=== PATIENT | male | born 1935 | race Caucasian/White ===

== ENCOUNTER 2021-03-25 14:20 | Inpatient (IN) | payer OTHER ==
[~2021-03-25] VITALS: Ht 180.3 cm; Wt 81.6 kg
[2021-03-25] MEDS ORDERED: PRAVACHOL40 MG PO (15:00)
[2021-03-25] MEDS ORDERED: EZETIMIBE10 MG PO (15:01)
--- NOTE | 2021-03-25 16:44 | NUR ---
COVID 19 TEST WAS PERFORMED TODAY 03/25 PER REPORT BY [facility] FINANCIAL AID ADVISOR. FAX OF NEGATIVE RESULTS HAS BEEN RECIEVED.
[2021-03-25] MEDS ORDERED: TYLENOL325 M1 PO (17:05)
[2021-03-25] MEDS ORDERED: CHILDREN'S ASPI81 M1 PO (17:05)
[2021-03-25] MEDS ORDERED: D3-200050 MCG PO (17:10)
[2021-03-25] MEDS ORDERED: PLAVIX 75 MG TA75 MG PO (17:12)
[2021-03-25] MEDS ORDERED: CALCIUM CARBON500 MG PO (17:13)
[2021-03-25] MEDS ORDERED: CLOTRIMAZOLE-BE15 GM TOP (17:14)
[2021-03-25] MEDS ORDERED: LOVENOX40 MG/0.4 SUBQ (17:15)
[2021-03-25] MEDS ORDERED: SLOW FE142 MG PO (17:16)
[2021-03-25] MEDS ORDERED: NEURONTIN300 MG PO (17:17)
[2021-03-25] MEDS ORDERED: SENNA8.8 MG/5 M PO (17:19)
[2021-03-25] MEDS ORDERED: PROTONIX40 M2 PO (17:20)
[2021-03-25] MEDS ORDERED: JANUMET 50-1,01 EACH PO (17:20)
[2021-03-25] MEDS ORDERED: OXYCODONE PO (17:31)
[2021-03-25] MEDS ORDERED: KRISTALOSE20 GM PO (17:34)
[2021-03-25] MEDS ORDERED: NOVOLOG100 UNIT/M SUBQ (17:38)
[2021-03-25 19:15] VITALS: BP 125/69
--- NOTE | 2021-03-25 23:15 | NUR ---
pt arrived to unit approx 1900 from [facility]. pts daughter here at bedside when pt arrived. pt transferred to bed with assist of 1 from [facility]. pt alert and oriented x4, appropriate and cooperative, hard of hearing and somewhat forgetful. pt pleasant, oriented to room and daughter Inna had brought in taco browning for pt. pt with good appetite tolerating food well. pt denied pain. pt with clothes on and sweat pants on and left bka with jessica wrap in place under pants. pt denied wanting to change clothes and stated he would wait until am to change. pt with no hs meds. pt with no further questions. call light in reach and bed alarm on. will continue to monitor.
[2021-03-26 05:39] LABS: CALCIUM 8.5 mg/dL (8.5-10.1)
[2021-03-26 05:40] LABS: HEMATOCRIT 25.5 % (42.0-52.0); HEMOGLOBIN 8.3 gm/dL (14.0-18.0); MCH 26.8 pg (26.0-34.0); MCHC 32.6 g/dL (28.0-37.0); MCV 82.3 fL (80.0-100.0); RBC 3.1 mil/uL (4.50-6.00); RDW 18.5 % (10.5-14.5); WBC 5.5 thou/uL (4.0-11.0)
[2021-03-26 08:00] VITALS: BP 115/75
[2021-03-26 09:17] LABS: FOLIC ACID 17.9 ng/mL (8.6-58.9)
--- NOTE | 2021-03-26 13:09 | NUR ---
team meeting, recommendation: AFO on right, new left bka. Britton consult. already has assist with medication and finances. possibly go to [place] till his daughter home is fixed up for him to come and live with his daughter. Re team
--- NOTE | 2021-03-26 15:34 | NUR ---
ASSUMED PT CARE AT SHIFT CHANGE, PT A/O, CALM AND COOPERATIVE, PT STATED THAT "THE NIGHT WAS GOOD" BEDSIDE ASSESSMENT DONE AND CHARTED. LABS REVIEWED NO NEW CONCERNS, VSS, MOOD AND APPETITE ADEQUATE, MEDS GIVEN PER ORDER, PT TAKES PILLS WHOLE WITH WATER, NO COMPLAINT VOICED, NO PAIN REPORTED, STAMP ASSESSED, NO COMPLICATIONS, DRESSING CLEAN AND INTACT, WC PERFORMED PER ORDER, AFEBRILE, WILL CONT TO MONITOR FRO CHANGE.
[2021-03-26 19:59] VITALS: BP 127/66
--- NOTE | 2021-03-27 01:48 | NUR ---
ASSUMED CARE APPROX 1900 EVENING 03/26. PT LYING IN BED WITH HEAD OF BED ELEVATED AT CHANGE OF SHIFT. PT HARD OF HEARING, APPROPRIATE AND COOPERATIVE. PT INCONTINENT OF URINE AND ASSIST WITH PAD/BRIEF CHANGE. PT TOOK HS MEDS WITH WATER TOLERATING WELL. PT APPEARS TO BE SLEEPING SOUNDLY. BED ALARM ON AND CALL LIGHT IN REACH. WILL CONTINUE TO MONITOR.
[2021-03-27 07:09] LABS: GLYCOHEMOGLOBIN (HGB A1C) 6.3 % (4.8-5.6)
[2021-03-27 07:39] VITALS: BP 118/70
--- NOTE | 2021-03-27 11:07 | NUR ---
ASSUMED CARE AT 0700. PATIENT IS ALERT AND ORIENTED X4. PATIENT IS H0H. PATIENT MOVES ALL EXTREMITES. FLIGHT COMMUNICATIONS OFFICER ARE EQUAL. PATIENT LUNGS ARE CLEAR AND DEMINISHED. PATIENT CONTINUES ON R.A. PATIENT HAS LEFT BKA WITH BRENT WRAP. ABD IS SOFT WITH BSX4. PATIENT IS INCONTINENT OF B & B. FALL AND SAFETY PROTOCOLS IN PLACE. DENIES PAIN AT THIS TIME. CONTINUES TO PROGRESS SLOWLY TOWARDS D/C GOALS. WILL COTINUE TO MONITER.
[2021-03-27 20:23] VITALS: BP 117/75
--- NOTE | 2021-03-28 04:20 | NUR ---
ASSUMED CARE AT 1930 OF 03/27. PATIENT IS A&OX4, DENIES PAIN OR SHORTNESS OF BREATH. DRESSING OVER LEFT BKA IS CDI. CAN BE INCONTINENT OF BOWEL AND BLADDER. MODERATE ASSIST WITH ADLS AT HS, USES URINAL TO VOID. URINAL PLACED AT BEDSIDE. FALL PRECAUTIONS IN PLACE, CALL LIGHT WITHIN REACH. WILL CONTINUE TO MONITOR.
[2021-03-28 08:00] VITALS: BP 118/56
--- NOTE | 2021-03-28 11:19 | NUR ---
ASSUMED CARE AT 0700. PATIENT IS ALERT AND ORIENTED X4. PATIENT HAS LEFT BKA. PLAN FOR FAMILY MEDICINE RESIDENT TO PLACE STUMP SHIELD LATER TODAY. LUNGS ARE CLEAR. ABD IS SOFT WITH BSX4. UP TO THE THE BATHROOM WITH MODERATE ASSIST TO HAVE BM AND VOID SULLY COLORED URINE. FALL AND SAFETY PROTOCOLS IN PLACE. DENIES PAIN AT THIS TIME. CONTINUES TO PROGESSS SLOWLY TOWARDS D/C GOALS. WILL CONTINUE TO MONITER.
--- NOTE | 2021-03-28 17:37 | NUR ---
PATIENT GIVEN D/C INSTRUCTIONS. PATIENT VERBALIZED UNDERSTANDING. PATIENT SISTERS HERE. PATIENT LEFT UNIT IN GOOD CONDTION WITH ALL OF HER BELONGINGS AND DISCHARGE INSTRUCTIONS. PATIENT WAS MIN ASSIST FROM W/C TO CAR.
[2021-03-28 19:40] VITALS: BP 128/68
--- NOTE | 2021-03-29 03:55 | NUR ---
ASSUMED CARE AT 1900 OF 03/28. PATIENT IS A&OX4, DENIES PAIN OR SHORTNESS OF BREATH. STUMP SHIELD TO LLE WAS REMOVED AT START OF SHIFT, DRESSING OVER LEFT BKA IS CDI. MODERATE ASSIST WITH SLIDE BOARD TO AND FROM W/C, AND MAXIMUM ASSIST WITH PIVOT TRANSFER TO TOILET USING GB. PATIENT WAS ABLE TO PERFORM ADLS AT HS WITH MINIMAL ASSIST. LLE REMAINS ELEVATED WHILE IN BED. FALL PRECAUTIONS IN PLACE, CALL LIGHT WITHIN REACH. WILL CONTINUE TO MONITOR.
[2021-03-29 06:26] LABS: HEMATOCRIT 22.9 % (42.0-52.0); HEMOGLOBIN 7.5 gm/dL (14.0-18.0); MCHC 32.7 g/dL (28.0-37.0); MCV 82.4 fL (80.0-100.0); PLATELET COUNT 268 thou/uL (150-400); RBC 2.78 mil/uL (4.50-6.00)
[2021-03-29 07:06] LABS: ABSOLUTE NEUTROPHILS 4.2 thou/uL (1.4-8.2); ANISOCYTOSIS 2+
[2021-03-29 07:10] LABS: ALBUMIN 2.5 g/dL (3.4-5.0); CALCIUM 7.9 mg/dL (8.5-10.1); CREATININE 2.9 mg/dL (0.7-1.3); MAGNESIUM 1.1 mg/dL (1.8-2.4); POTASSIUM 4.3 mmol/L (3.5-5.1); TOTAL BILIRUBIN 0.2 mg/dL (0.2-1.0); TOTAL PROTEIN 5.8 g/dL (6.4-8.2)
--- NOTE | 2021-03-29 07:58 | NUR ---
Chart review. Cont to work with therapy, working towards dc. W/c at dc r/t new bka. Will cont following as needed for dc needs. [facility] at tx.
[2021-03-29 08:00] VITALS: BP 117/61
--- NOTE | 2021-03-29 19:14 | NUR ---
Patient care resummed, patient located in bed lying high fowers comfortably watching T.V. Patient denies pain or discomfort. A&O*4 but forgetful at times, Lung sounds are clear and unlabored, abdomen is soft and round on morning assessment then later in the day the patients abdomen was distended and firm. Patient order was placed to be bladder scanned. Patient risdual was 1,164, 16french cornejo was ordered per THERAPIST PHYS at 1530 and 1,200 was drained from the bladder. Rentention was met during procedure by RN(Brandi) and THERAPIST PHYS was notififed and a Urology consult was ordered. Urology came by to see the patient at 1819 and informed SCANNING SUPERVISOR everything look good. Patient recieved Acetaminopen for post procedure discomfort. Will continue to monitor this patient closely. UA and Labs were collcted today, ACHS with insulin only given at dinner. Wound Care consulted for Patients Thursday assessment per orders. Wound Care informed SCANNING SUPERVISOR that changing and assessing the patients wound was my job not his. Patients would was not changed, but cnc machinist 2nd shift RN was informed and will attempt to do so before bedtime. Wound dressing dry and intact at this time. VSS. Will continue to monitor patient.
[2021-03-29 19:17] LABS: URINE BILIRUBIN NEGATIVE (Negative); URINE BLOOD 3+ (Negative); URINE CLARITY CLEAR; URINE COLOR YELLOW; URINE GLUCOSE-RANDOM* NEGATIVE (Negative); URINE KETONES NEGATIVE (Negative); URINE LEUKOCYTES-REFLEX NEGATIVE (Negative); URINE NITRITE-REFLEX NEGATIVE (Negative); URINE PROTEIN (DIPSTICK) NEGATIVE (Negative); URINE UROBILINOGEN 0.2 E.U./dl (0.2-1.0)
[2021-03-29 19:45] VITALS: BP 141/71
[2021-03-29 19:58] LABS: CASTS None Seen /LPF (None Seen); SQUAMOUS 0-3 Few /LPF (0-3); URINE WBC-REFLEX 0-5 Rare /HPF (0-5)
[2021-03-29 19:59] LABS: BACTERIA-REFLEX 1-9 Few /HPF (None Seen); CRYSTALS None Seen /LPF (None Seen); URINE RBC 3-10 Few /HPF (NONE SEEN)
--- NOTE | 2021-03-30 02:17 | NUR ---
assumed care approx 0 evening 03/29. pt lying in bed resting at change of shift.pt alert and oriented x4, pleasant, cooperative, hard of hearing. cornejo to dd with blood tinged urine in bag. pt denied any pain. pt took hs meds with water tolerating well. pt appears to be sleeping soundly. bed alarm on and call light in reach. will continue to monitor.
[2021-03-30 06:19] LABS: ABSOLUTE NEUTROPHILS 3.5 thou/uL (1.4-8.2); BASOPHILS 0.9 % (0.0-2.0); EOSINOPHILS 5.9 % (0.0-3.0); HEMATOCRIT 22.8 % (42.0-52.0); HEMOGLOBIN 7.4 gm/dL (14.0-18.0); LYMPHOCYTES 13.5 % (24.0-44.0); MCH 26.6 pg (26.0-34.0); MCHC 32.4 g/dL (28.0-37.0); MONOCYTES 11.8 % (1.0-8.0); PLATELET COUNT 273 thou/uL (150-400); POLYS 67.9 % (36.0-66.0); RBC 2.78 mil/uL (4.50-6.00); RDW 18.7 % (10.5-14.5); WBC 5.2 thou/uL (4.0-11.0)
[2021-03-30 06:53] LABS: MAGNESIUM 1.1 mg/dL (1.8-2.4); POTASSIUM 4.3 mmol/L (3.5-5.1)
[2021-03-30 07:07] LABS: CREATININE 1.5 mg/dL (0.7-1.3)
[2021-03-30 08:00] VITALS: BP 139/72
--- NOTE | 2021-03-30 09:19 | NUR ---
ASSUMED CARE AT 0700. PATIENT IS ALERT AND ORIENTED X4. PATIENT IS VERY [place]. PATIENT HAS LEFT BKA. PATIENTS LUNGS ARE CLEAR. ABD IS SOFT WITH BSX4. UP TO THE BATHROOM TO HAVE BM. ENCOURAGED PO FLUIDS. PATIENT HAS BUCHANAN TO DD, DRAINIG PALE PINK DRAINAGE. LEFT STUMP DRESSING CHANGED ACCORDING TO PROTOCOLS. FALL AND SAFETY PROTOCOLS IN PLACE.DENIES PAIN IN STUMP AT THIS TIME. CONTINUES TO PROGRESS SLOWLY TOWARDS D/C GOALS. STUMP SHIELD IN PLACE. WILL CONTINUE TO MONITER.
--- NOTE | 2021-03-30 19:02 | NUR ---
1000 DR. ORTEGA HERE TO SEE PATIENT. DR. ORTEGA NOTIFIED OF MG LEVEL 1.1 HE STATED" HE WOULD REVIEW THE LABS" AND DECIDE WHAT HE WANTED TO DO. HE WAS NOTIFIED OF UROLOGY VISIT AND ORDERS FOR BUCHANAN X 3 DAYS. FLOMAX WAS STARTED. PATIENT WAS ENCOURAGED TO INCREASE HIS PO INTAKE. PLAN BLADDER TRAINING TO START ON THURSDAY. METFORMIN ON HOLD. CR LEVEL 1.5. WILL CONTINUE TO MONITER.
[2021-03-30 19:37] VITALS: BP 145/76
--- NOTE | 2021-03-31 00:36 | NUR ---
ASSUMED CARE AT 1900 OF 03/30. PATIENT IS A&OX4, DENIES PAIN OR SHORTNESS OF BREATH. 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 DRESSING TO LEFT BKA IS IN PLACE AND INTACT. ORAL FLUID INTAKE IS ENCOURAGED, BUCHANAN TO DD, DRAINING YELLOW URINE. TOLERATED ORAL MEDS WHOLE WITH WATER AT HS. FALL PRECAUTIONS IN PLACE, CALL LIGHT WITHIN REACH. WILL CONTINUE TO MONITOR.
[2021-03-31 08:00] VITALS: BP 138/72
--- NOTE | 2021-03-31 16:44 | NUR ---
PT care assumed at shift change, Pt A/O x 4, Pt appears calm and cooperative, assessment done at bedside an charted, VSS , labs reviewed and no concerns; All meds given per order, takes pills whole with water, no pain or respiratory distress noticed, pt looks comfortable and safe, all fall precautions in place, Wc per order, urinary cathter patent, 1 nomarl BM, no other concerns. Will cont' POC.
[2021-03-31 19:45] VITALS: BP 155/68
--- NOTE | 2021-04-01 05:09 | NUR ---
ASSUMED CARE AT 1900 OF 03/31. PATIENT IS A&OX4, FORGETFUL AT TIMES. DENIES PAIN OR SHORTNESS OF BREATH. LEFT BKA STUMP DRESSSING IN PLACE AND INTACT. ORAL MAGNESIUM REPLACEMENT ADMINISTERED THIS SHIFT, CBC AND MAG LEVEL TO BE RECHECK IN THE AM. PATIENT REFUSED TO CHANGE INTO GOWN AT HS, BUT PERFORMED ORAL HYGIENE WITH SUPERVISION. BUCHANAN TO DD, DRAINING CLEAR YELLOW URINE. FALL PRECAUTIONS IN PLACE, CALL LIGHT WITHIN REACH. WILL CONTINUE TO MONITOR.
[2021-04-01 06:02] LABS: CALCIUM 8.2 mg/dL (8.5-10.1); CREATININE 0.8 mg/dL (0.7-1.3); MAGNESIUM 1.2 mg/dL (1.8-2.4); POTASSIUM 4.1 mmol/L (3.5-5.1)
[2021-04-01 09:03] VITALS: BP 128/83
--- NOTE | 2021-04-01 15:37 | NUR ---
THIS PETROLEUM ENGINEERING TEACHER COMPLETED THE CONSULT FOR THIS PATIENT. WE DID LIFE REVIEW AND DISCUSSED THE RECENT OF HIS . PATIENT IS AN [employer] . HE IS AN AMAZING PERSON. THIS PETROLEUM ENGINEERING TEACHER UPDATED HIS BAHAI PREFERENCE. HIS DAUGHTER WALKED BY AND VISITED BRIEFLY WE WERE VISITING. WE CONCLUDED THE VISIT WITH PRAYER.
--- NOTE | 2021-04-01 17:29 | NUR ---
ASSUMED CARE FOR PT AT SHIFT CHANGED; ASSESSMENT DONE AT BEDSIDE AND NO CONCERNS VOICED, PT A/O X4, VSS, LABS REVIEWED, PT UP WITH 1a, Wc AND GB, MEDS GIVEN ORDERED, TOOK MEDS WHOLE WITH WATER, URINARY CATH PATENT , URINE YELLOW TO CLEAR, NO SEDIMENTS OR BLOOD CLOTS OBSERVED, NO C/O PAIN, WOUND CARE PERFORMED, NO COMPLICATIONS, DRESSING WAS C/I/D, GOOD APPETITE BUT PREFERED FOOD FROM HOME, HOURLY ROUND, WORKED SUCCESFULLY W/ PO/OT, HAD A NORMAL BM TODAY, WILL CONT'POC AND MONITOR FOR CHANGE.
--- NOTE | 2021-04-01 19:10 | HC ---
[facility] [place] [address] CONSULTATION Name: JENNIFER VERONICA Room #: 516-1 ADM IN M.R.#: [id number] Admission: 03/25/21 Attend Phys: Ricky Renee MD Discharge: Date of : 36 Report #: [id number] THIS REPORT FOR: cc: Armani Sandhu,Armani Caballero,Moise Brizuela MD ~ DATE OF SERVICE: 03/27/2021 CHIEF COMPLAINT: Left below-knee amputation surgical site. HISTORY: This is an 85-year-old male patient who underwent left below-knee amputation on 03/16/2021 at [facility]. He had ulceration to his foot and possibly underlying osteomyelitis that is extending into the ankle. He has had a prior amputation of the right fifth toe, but no other open ulcerations. He has no pain and is admitted to the rehab unit, and I have been asked to see him with regard to ongoing wound care. 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 SOCIAL HISTORY: The patient is a prior cigarette smoker, no alcohol use. He has been . His in the last 30 days. He was living at home independently, will likely go home eventually to live with his daughter. CURRENT MEDICATIONS: Include Pravachol, ezetimibe, vitamin D3, Plavix, clotrimazole, betamethasone cream, Lovenox, Neurontin, senna, Janumet, Protonix. ALLERGIES: No known drug allergies. FAMILY HISTORY: Noncontributory. REVIEW OF SYSTEMS: CONSTITUTIONAL: The patient denies fever, chills, or weight loss. NEUROLOGICAL: The patient denies focal weakness, numbness or tingling. EYES: The patient denies visual changes, redness or drainage. ENT: The patient denies earache, nasal drainage, or sore throat. CARDIOVASCULAR: The patient denies chest pain, palpitations, or diaphoresis. PULMONARY: The patient denies cough or shortness of breath. GASTROINTESTINAL: The patient denies nausea or abdominal pain. ORTHOPEDIC: The patient has recent below-knee amputation on the left side. Others systems in a 14-point review of systems are negative. PHYSICAL EXAMINATION: [address] [address] CONSULTATION Name: JENNIFER VERONICA Room #: 516-1 [facility] IN [facility]#: [id number] Admission: 03/25/21 Attend Phys: Ricky Renee MD Discharge: Date of : 36 Report #: [id number] VITAL SIGNS: The patient's vital signs at this time include temperature 36.4, pulse 88, respiration 16, blood pressure 118/70. GENERAL: This is a somewhat chronically ill-appearing male patient appears to be in no distress. HEENT: Normocephalic. Nose and throat are clear. NECK: Supple. LUNGS: Clear. ABDOMEN: Soft, bowel sounds present. EXTREMITIES: Examination of the lower extremities demonstrate left below-knee amputation site has nylon sutures in place. The incision is well approximated. It is not infected. There is no evidence of drainage or redness or tenderness. Right foot is examined. No ulcerations on the foot or heel. The right fifth toe is surgically absent. NEUROLOGIC: The patient is alert and oriented and appropriate. LABORATORY STUDIES: Include white blood cell count 5.5 with a hemoglobin of 8.3, sodium 129, potassium is 4.0, chloride 94, CO2 of 21, BUN 11, creatinine 1.0, glucose 149. CLINICAL IMPRESSION: 1. Surgical incision to the left leg, status post below-knee amputation. 2. Diabetes mellitus. 3. Peripheral neuropathy. 4. History of recent osteomyelitis. 5. History of coronary artery disease. RECOMMENDATIONS: At this point in time, recommend topical Xeroform, ABD, Kerlix and Escobar wrap to the right leg. He will begin physical therapy, would recommend a Prevalon boot to the right foot when he is in bed. Continue with nutritional support to maximize wound healing. I appreciate being asked to see him in consultation. <ELECTRONICALLY SIGNED> By: Moise Calderon MD 04/01/21 1910 [id number] Moise Calderon MD /nt
[2021-04-01 19:55] VITALS: BP 150/75
--- NOTE | 2021-04-01 23:51 | NUR ---
PT ALERT AND ORIENTED X 4. LEFT BKA DRESSING C/D/I. BUCHANAN PATENT DRAINING CLEAR YELLOW URINE. PT TAKES MEDS WITH WATER WITHOUT DIFFICULTY. PT DENIES PAIN OR DISCOMFORT. BED ALARM ON FOR SAFETY. PT APPEARS TO BE SLEEPING ON HOURLY ROUNDS.
--- NOTE | 2021-04-02 07:12 | NUR ---
BUCHANAN CATHETER CLAMPED AT 0645 FOR BLADDER TRAINING.
[2021-04-02 08:15] VITALS: BP 120/59
[2021-04-02 08:52] LABS: HEMATOCRIT 30.4 % (42.0-52.0); HEMOGLOBIN 9.4 gm/dL (14.0-18.0); MCH 25.8 pg (26.0-34.0); MCHC 31.1 g/dL (28.0-37.0); MCV 83.1 fL (80.0-100.0); RBC 3.66 mil/uL (4.50-6.00); RDW 19.3 % (10.5-14.5); WBC 4.6 thou/uL (4.0-11.0)
[2021-04-02 09:04] LABS: CALCIUM 8.6 mg/dL (8.5-10.1); CREATININE 0.9 mg/dL (0.7-1.3); MAGNESIUM 1.6 mg/dL (1.8-2.4); POTASSIUM 4.3 mmol/L (3.5-5.1)
[2021-04-02 10:07] VITALS: BP 120/59
--- NOTE | 2021-04-02 11:03 | NUR ---
THIS NURSE TOOK OVER PATIENTS CARE AT 0700. A/Ox4, ABLE TO MAKE NEEDS KNOWN. VSS AFBRILE. BLADDER TRAINING INITATED; RECLAMPED BUCHANAN AT 1015. EDUCATED PATIENT ON S/S TO LOOK FOR AND TO LET NURSE KNOW IF HE HAS ANY URINARY SENSATION. VERBALIZED FULL UNDERSTANDING. TRANSFERS WITH A SLIDE BOARD AND STAFF ASSIST X 1. DENIES PAIN AT THIS TIME. WORKED WITH PT/OT TODAY. CONTINUE WITH POC; NO NEEDS OR CONCERNS AT THIS TIME.
--- NOTE | 2021-04-02 13:28 | NUR ---
Team meeting, recommendation: Urology following, urinary retention. Need stump shinker r/t swelling. metal ceiling hanger consult. transfers with slide board. AFO on right r/t foot drop. Needs assist t with medication and finance. neumotion for wheelchair- manual. Will be dc to [facility] at [facility] prior to going to live with his daughter. dc 04/09 dc to [facility] (pt, ot, st, nursing). DME: slide board, wheel chair, wheel chair cushion. Follow up outpt with urology.
--- NOTE | 2021-04-02 18:41 | NUR ---
patient was unsuccessful with bladder training this afternoon. catheter was clamped at 1015 and unclamped at 1615. Patient had no urges to urinate or and discomfort.After unclamping patient had 600ml of fluid. reclamped for another bladder trial at 1800. will pass on in report
[2021-04-02 20:00] VITALS: BP 183/91
[2021-04-02 20:36] VITALS: BP 148/66
--- NOTE | 2021-04-03 04:12 | NUR ---
ASSUMED CARE AT 1900 OF 04/02. PATIENT IS A&OX4, DENIES PAIN OR SHORTNESS OF BREATH. LEFT BKA DRESSING IN PLACE AND INTACT. PATIENT REPORTED FEELING THE URGE TO VOID AT 2230, BUCHANAN WAS UNCLAMPED, APPROX 600 CC OF YELLOW URINE DRAINED. MIN TO MODERATE ASSIST WITH TRANSFER TO /, USING GB AND SLIDE BOARD. FALL PRECAUTIONS IN PLACE, CALL LIGHT WITHIN REACH. WILL CONTINUE TO MONITOR.
[2021-04-03 08:00] VITALS: BP 109/60
--- NOTE | 2021-04-03 13:36 | NUR ---
ASSESSMENT CHARTED. PT ALERT AND ORIENTED. VSS. DENIED HAVING PAIN OR DISCOMFORT. PARTICIPATED IN PT/OT. UP IN THE CHAIR FOR MEALS. NO CONCERNS AT THIS TIME. PT PROGRESSING WELL TOWARDS DISCHARGE GOAL.
[2021-04-03 19:00] VITALS: BP 145/83
--- NOTE | 2021-04-03 19:24 | NUR ---
I have reviewed the documentation by TOÑO NAYLOR from 04/01/21 to 04/03/21 and I concur with it. ALCIRA CALZADA
--- NOTE | 2021-04-04 01:46 | NUR ---
ASSUMED CARE AT 1900 OF 04/03. PATIENT IS A&OX4. DENIES PAIN OR SOB. MINIMAL ASSIST WITH TRANSFER TO /, USING SLIDE BOARD. LEFT BKA STUMP DRESSING IS IN PLACE AND INTACT, KEPT ELEVATED WHILE IN BED. ACCORDING TO REPORT RECEIVED FROM NURSE ON PREVIOUS SHIFT, PATIENT'S BUCHANAN WAS REMOVE AT APPROX 1600. UROLOGY ORDERED FOR PVR MONITORING, AND TO STRAIGHT CATH PATIENT FOR ANY PVR >350. WHEN PATIENT WAS TAKEN TO TOILET TO HAVE A BM AND REPORTED HE FELT THE URGE TO VOID BUT WAS UNABLE TO WHILE ON THE TOILET. BLADDER SCAN INDICATED >700CC. AT 2200 PATIENT WAS STRAIGHT CATHED, OUTPUT WAS 825CC. PATIENT REPORTED PAIN DURING INSERTION OF CATHETER. BLOOD TINGED YELLOW URINE NOTED, WITH ONE PEA SIZED BLOOD CLOT. PATIENT TOLERATED PROCEDURE AND REPORTED PRESSURE RELIEF. PATIENT IS NOW SLEEPING. URINAL LEFT AT BEDSIDE. WILL CONTINUE TO MONITOR. FALL PRECAUTIONS IN PLACE, CALL LIGHT WITHIN REACH.
[2021-04-04 08:00] VITALS: BP 113/64
--- NOTE | 2021-04-04 11:13 | NUR ---
ASSUMED CARE AT 0700. PATIENT IS ALERT AND ORIENTED X4. PATIENT HAS BKA ON THE LEFT. LUNGS ARE CLEAR. ABD IS SOFT WITH BSX4. PLAN RE-INSERTION OF BUCHANAN LATER TODAY R/T RETENTION PER UROLOGY. PATIENT IS SLIDE BOARD TRANSFER FROM BED TO W/C. PATIENT IS SLIDE BOARD TRANSFER FROM BED TO W/C. DRESSING CHANGED TO LEFT STUMP ACCORDING TO PROTOCOL. STUMP SHIELD ON AND IN PLACE. FALL AND SAFETY PROTOCOLS IN PLACE. DENIES PAIN AT THIS TIME. CONTINUES TO PROGRESS TOWARDS D/C GOALS. WILL CONTINUE TO MONITER.
--- NOTE | 2021-04-04 12:12 | NUR ---
Assess d/t LOS. Pt admitted to rehab from [facility] on 03/16/21. With urinary retention, need for cornejo. Voiding trial failed chantal rags[place] resinterted. Hx DMII; on metformin; SSI. BS range 158-243; other labs reviewed, noted with elevated TSH and low Mg. Other meds include B12, Vit D, statin, mirtazapine. No weight recorded since 03/25. Intakes 100% on regular diet with no c/o chewing/swallowing issues. Possible d/c 04/09 to [facility]URSING HOME. Low nutrition risk at this time.
--- NOTE | 2021-04-04 15:03 | NUR ---
[address] 16 FR CUDAY CATHETER. BLADDER SCAN SHOWED 900CC. 16 FR. CUDAY CATHETER INSERTED WITHOUT DIFFICULTY.EMPTIED 1000 CC OF BLOOD TINGED URINE. PATIENT TOLERATED PROCEDURE WELL. WILL CONTINUE TO MONITER.
--- NOTE | 2021-04-04 15:33 | NUR ---
Per [facility] is able to accept for [facility], need covid test on thursday04/08/21 before dc on 04/09/21. Facility # [phone], [facility] # [phone] with admitting.
[2021-04-04 19:47] VITALS: BP 123/59
--- NOTE | 2021-04-05 02:27 | NUR ---
ASSUMED CARE APPROX 1900 EVENING 04/04. PT LYING IN BED RESTING AT CHANGE OF SHIFT. BUCHANAN TO DD WITH BLOOD TINGED URINE TO BAG. PT STATED HE DID NOT SLEEP WELL LAST NIGHT AND IS VERY GLAD CATHETER IS IN NOW AND DOES NOT WANT TO GO THRU THE TRAUMA OF PUTTING THE CATHETER IN AGAIN. PT STATED "THEY WILL HAVE TO PUT ME OUT IF THEY TAKE IT OUT AGAIN AND PUT IT BACK IN". EMOTIONAL SUPPORT GIVEN TO PT AND PT APPEARS TO BE SLEEPING WELL TONIGHT. BED ALARM ON AND CALL LIGHT IN REACH. WILL CONTINUE TO MONITOR.
[2021-04-05 03:54] LABS: HEMATOCRIT 24.1 % (42.0-52.0); HEMOGLOBIN 7.7 gm/dL (14.0-18.0); MCH 26.6 pg (26.0-34.0); MCHC 31.9 g/dL (28.0-37.0); MCV 83.1 fL (80.0-100.0); RBC 2.89 mil/uL (4.50-6.00); RDW 19.7 % (10.5-14.5); WBC 5.7 thou/uL (4.0-11.0)
[2021-04-05 04:07] LABS: CALCIUM 7.8 mg/dL (8.5-10.1); CREATININE 0.9 mg/dL (0.7-1.3); POTASSIUM 4.5 mmol/L (3.5-5.1)
[2021-04-05 08:00] VITALS: BP 106/53
--- NOTE | 2021-04-05 10:47 | PLAN ---
[facility] [place] [address] REHAB UNIT PLAN OF CARE Name: JENNIFER VERONICA Room #: 516-1 ADM IN M.R.#: [id number] Admission: 03/25/21 Attend Phys: Ricky Renee MD Discharge: Date of : 36 Report #: [id number] THIS REPORT FOR: cc: Armani Sandhu,Armani Locke,Ricky Bear MD ~ DATE OF SERVICE: 03/27/2021 PROGRESS NOTE/OVERALL PLAN OF CARE HISTORY OF PRESENT ILLNESS: The patient was seen back today in followup. He is in no distress. Temperature 36.4, pulse 88, respirations 16, blood pressure 118/70. He is alert, pleasant. No distress. No focal calf swelling. His below-knee amputation residual limb is dressed. Right lower extremity, no calf swelling and no skin issues noted over his distal foot. He does have the premorbid right foot drop from his neuropathy. Functionally, he has been working in therapies with transfers max assist, bed mobility is standby assistance, lower body dressing is max assist, upper body dressing is supervision. In speech, he has moderate cognitive deficits with moderate memory deficits. ASSESSMENT: 1. 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 2. Diabetes mellitus type 2 with peripheral neuropathy. 3. Premorbid right foot drop. 4. 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 5. Acute blood loss with iron deficiency anemia. 6. Peripheral arterial disease, status post stenting. PLAN: The overall plan of care is based on the pre-admit screen and information garnered from therapy assessments. 1. Estimated length of stay is probably 14-21 days. 2. Medical prognosis is reasonably good. 3. Anticipated interventions includes the interdisciplinary acute inpatient rehabilitation program. 4. Anticipated functional outcomes would be for the patient to become modified independent with transfers or at least to be maximally independent with basic transfers and ADLs and to improve as far as cognition to be able to return back to the home setting. 5. Discharge destination would be either to the home setting or potentially to an assisted living apartment after the rehabilitation stay. He does have closely involved family. 6. Expected therapy by discipline includes PT, OT and speech 1 hour per day, each 5 days a week throughout the duration of the acute inpatient rehabilitation stay. [address] [address] REHAB UNIT PLAN OF CARE Name: JENNIFER VERONICA Room #: 516-1 ADM IN [facility]#: [id number] Admission: 03/25/21 Attend Phys: Ricky Renee MD Discharge: Date of : 36 Report #: [id number] ADDENDUM: The patient's prognosis for significant practical improvement within a reasonable period of time appears good. Given the patient's complex medical condition and risk of further medical complication, rehabilitation services could not be safely provided at the lower level of care such as a custodial facility. <ELECTRONICALLY SIGNED> By: Ricky Renee MD 04/05/21 1047 [id number] Ricky Renee MD /nt
--- NOTE | 2021-04-05 10:47 | H ---
[facility] [place] [address] HISTORY AND PHYSICAL Name: JENNIFER VERONICA Room #: 516-1 ADM IN M.R.#: [id number] Admission: 03/25/21 Attend Phys: Ricky Renee MD Discharge: Date of : 36 Report #: [id number] THIS REPORT FOR: cc: Armani Sandhu,Armani Locke,Ricky Bear MD ~ DATE OF SERVICE: 03/26/2021 HISTORY OF PRESENT ILLNESS: The patient was admitted yesterday to the acute inpatient rehabilitation [facility] from [facility]. 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 He has been noted to have completed his antibiotic course and will need repeat blood cultures drawn on 04/08/2021. Postoperatively, he had problems with hyponatremia, hyperkalemia, acute renal insufficiency, acute blood loss anemia, decreased oral intake. He has acute depression and grieving state, as his just while he was in the hospital. He does have a premorbid right foot-drop from neuropathy with a premorbid AFO that he has worn for the last 12 years. PAST MEDICAL HISTORY: Please see the documentation as noted. SOCIAL HISTORY: He was living at home with his prior to her passing, 3 steps in, 1 step into the bedroom. He uses a front-wheeled walker. He was independent with ADLs. He had some IADLs provided. Supportive daughter and son in town. Looking at assisted living facility options. He indicates that his son is a retired anesthesiologist. ALLERGIES: No known drug allergies. HABITS: Former smoker, quit greater than a year ago. No history of alcohol abuse. REVIEW OF SYSTEMS: No current complaints of chest pain, shortness of breath, or abdominal discomfort. Please see the full review of systems as documented. PHYSICAL EXAMINATION: GENERAL: A very pleasant 85-year-old white male in no obvious distress. He is alert, oriented, pleasant, follows basic commands without difficulty. VITAL SIGNS: Last recorded temperature 36.6, pulse 100, respirations 20, blood pressure 125/69. HEENT: Facies are symmetric. CHEST: Sounds clear to auscultation. CARDIAC: Regular rate and rhythm. ABDOMEN: Bowel sounds positive. Nontender. GENITOURINARY AND RECTAL: Deferred. EXTREMITIES: He does have the left below-knee amputation with wrapping in place [address] [address] HISTORY AND PHYSICAL Name: JENNIFER VERONICA Room #: 516-1 [facility] IN [facility]#: [id number] Admission: 03/25/21 Attend Phys: Ricky Renee MD Discharge: Date of : 36 Report #: [id number] and has good movement of the knee in flexion and extension. He has the right AFO in place with noted history of the prior right foot-drop. He has decreased distal sensation with his peripheral neuropathy. No focal calf swelling. He needs assist with basic functional mobility and ADLs with max assist coming to stand. NEUROLOGIC: He does have moderate cognitive deficits with moderate memory deficits that are noted. ASSESSMENT: 1. 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 2. Diabetes mellitus, type 2 with peripheral neuropathy. 3. Premorbid right foot-drop. 4. Hyponatremia with possible syndrome of inappropriate antidiuretic hormone. 5. Acute blood loss with iron-deficiency anemia. 6. Peripheral arterial disease, status post stenting. 7. Hyperkalemia, improved. 8. Transient ischemic attack history. PLAN: The patient has been admitted for acute in-hospital inpatient rehabilitation. Please see the patient's previous and current functional status. As far as risk of complications, he does have the multiple medical comorbidities as noted above. Initial plan of care involves the interdisciplinary acute inpatient rehabilitation program. Measurable functional goals will be for the patient to become modified independent with transfers, mobility, ADLs, and cognition so that he can hopefully return to the home setting. Prognosis is reasonably good with estimated length of stay probably around 14-21 days. We will need to see how he progresses. Potential barriers would include his multiple medical comorbidities and decreased functional status. <ELECTRONICALLY SIGNED> By: Ricky Renee MD 04/05/21 1047 [id number] Ricky Renee MD /nt
--- NOTE | 2021-04-05 14:39 | NUR ---
Cm notified by consuelo daughter, that [facility] notified her that he has been accepted at their [facility]. DC 04/09. DME needs for dc.
--- NOTE | 2021-04-05 17:45 | NUR ---
Assumed Pt care at shift change, Pt A/) x 4 , assessment done at bedside,and charted, no new concerns, VSS, labs reviewed, takes pill whole with water, pt looks confortable, no c/o pain, safety precautions maintained, WC done per order no complications noted, labs reviewed, worked well with PT/OT, no other concerns! will cont' POC.
[2021-04-05 19:45] VITALS: BP 149/73
--- NOTE | 2021-04-06 01:38 | NUR ---
assumed care approx 1900 evening 04/05. pt lying in bed at change of shift. pt alert and oriented x4, pleasant and cooperative, hard of hearing. cornejo to dd with clear, yellow urine to bag. pt denies pain. changed dressing to left bka as it was loose. pt appears to be sleeping soundly, bed alarm on and call light in reach. will continue to monitor.
--- NOTE | 2021-04-06 08:10 | NUR ---
ASSUMED CARE AT 0700. PATIENT IS ALERT AND ORIENTED X4. PATIENT MURO'S, PATIENT HAS LEFT BKA SHEILD ON. DRESSING TO LEFT BKA CHANGED ACCORDING TO PROTOCOLS. INCISION DRY AND INTACT. LUNGS ARE CLEAR. ABD IS SOFT WITH BSX4. PATIENT HAS BUCHANAN TO DD, DRAINING SULLY COLORED URINE. UP IN W/C FOR MEALS. FALL AND SAFETY PROTOCOLS IN PLACE. DENIES PAIN AT THIS TIME. CONTINUES TO PROGRESS SLOWLY TOWARDS D/C GOALS. WILL CONTINUE TO MONITER.
[2021-04-06 08:12] VITALS: BP 128/66
[2021-04-06 19:25] VITALS: BP 150/83
--- NOTE | 2021-04-07 02:40 | NUR ---
ASSUMED CARE AT 1915 OF 04/06. PATIENT IS A&OX4, FORGETFULL AT TIMES. DENIES PAIN OR SHORTNESS OF BREATH. DRESSING TO LEFT BKA STUMP IN PLACE AND INTACT. BUCHANAN TO DD, DRAINING SULLY COLORED URINE. MIN ASSIST OF 1 WITH TRANSFER TO W/ USING SLIDE BOARD. FALL PRECAUTIONS IN PLACE, CALL LIGHT WITHIN REACH. WILL CONTINUE TO MONITOR.
[2021-04-07 07:32] VITALS: BP 142/73
[2021-04-07 11:14] LABS: HEMOGLOBIN 8.3 gm/dL (14.0-18.0)
[2021-04-07 11:18] LABS: CALCIUM 8.3 mg/dL (8.5-10.1); MAGNESIUM 1.4 mg/dL (1.8-2.4); POTASSIUM 4.4 mmol/L (3.5-5.1)
[2021-04-07 11:30] LABS: HEMATOCRIT 25.8 % (42.0-52.0)
--- NOTE | 2021-04-07 13:51 | NUR ---
Assumed pt care at shift change, assessment done at [facility], Pt A/O x 4, VSS, labs reviewed, low HB ( see labs results), will be rechecked today, Blood tranfusion per order today if result is below the acceptable range, Pt comfortable, calm and cooperative, all safety measures in place, Had a BM today , Urinary cath patent, satisfactiory I&O's, takes meds whole with water, Up w/1 assisst, using the slide board, GB and WC, Gluc covered per order, good appetite, no concern voiced, no c/o pain. Wound assessed, no complications notes. Hourly round done , Will cont' monitor for change.
[2021-04-07 19:00] VITALS: BP 136/71
--- NOTE | 2021-04-08 05:41 | NUR ---
ASSUMED CARE OF PT AT 1900. BEDSIDE REPORT RECIEVED. GINI ASSESSMENT COMPLETE. PT C/O LBKA PAIN AND NUMBNESS. PAIN MEDS GIVEN ACCORDINLY. MEDS GIVEN PER MAR. Q2 HOUR REPOSITIONING FOR COMOFRT. BUCHANAN CARE COMPLETE. REFILLED WATER FOR PT. ALL NEEDS MET. HOURLY ROUNDING CONTINUING. CALL LIGHT INREACH
[2021-04-08 08:00] VITALS: BP 133/66
--- NOTE | 2021-04-08 12:27 | NUR ---
ASSUMED PT CARE AT SHIFT CHANGE AROUND 0700, REPORT RECEIVED AT BED SIDE , NO OVERNOIGHT ISSUE REPORTED, ASSESSMENT DONE CHARTED, PT A/O X 4, COMFORTABLE, SATEY PRECAUTIONS MAINTAINED, DAILY WOUND CARE DONE PER ORDER , DRESSINGS D,C,I, VSS, LABS REVIEWED NO NEW CONCERNS, MEDS GIVEN PER MAR, BUCHANAN CATH PATENT , I&O'S SATISFACTORY, WILL CONT' MONITOR FOR CHANGES, POC TO BE CONT'D.
--- NOTE | 2021-04-08 16:57 | HC ---
[facility] [place] [address] CONSULTATION Name: JENNIFER VERONICA Room #: 516-1 ADM IN M.R.#: [id number] Admission: 03/25/21 Attend Phys: Ricky Renee MD Discharge: Date of : 36 Report #: [id number] THIS REPORT FOR: cc: Armani Sandhu Bradford DO Deutch,Farrukh Harmon PhD ~ DATE OF SERVICE: 03/31/2021 NEUROBEHAVIORAL STATUS EXAMINATION DATE OF CONSULTATION: 03/31/2021. ATTENDING PHYSICIAN: Ricky Renee M.D. DIRECTOR OF MARKETING [employer] PERFORMANCE ADS: Farrukh Longoria, PhD. CLINICAL PRESENTATION: The patient is an 85-year-old male admitted to [facility] for a comprehensive inpatient rehabilitation program to improve functional mobility, activities of daily living and self-care and mental status, secondary to deficits from a reldn-lqy-cxdf amputation. He was living by himself, independently at the time of his admission. His approximately 1 week before his amputation. His assessment on admission to the rehabilitation unit is a recurrent methicillin-resistant Staphylococcus aureus bacteremia, status post left rmpzi-tza-[id number] amputation on 03/16/2021, diabetes mellitus type 2, peripheral neuropathy, premorbid right footdrop, hyponatremia with possible syndrome of inappropriate antidiuretic hormone, acute blood loss with iron deficiency anemia, peripheral arterial disease status post stenting, hyperkalemia, improved, transient ischemic attack by history. A complete description of his medical condition and history can be found in his medical record. Neuropsychological consultation was requested to provide assistance in the assessment of cognitive and mental status and provide recommendations and services. Prior to this most recent medical event, he was living independently. As indicated, his had about one week prior to his amputation. He has two children. One daughter is an occupational therapist here at [facility]. He has a son who is a retired anesthesiologist. The patient is reported to have been independent with basic and instrumental activities of daily living before his most recent medical event. He is a high school graduate. 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 TECHNIQUES UTILIZED: Clinical interview, review of medical records, staff consultation and behavioral observation, mini mental status exam 2 standard version and clock drawing. [address] [address] CONSULTATION Name: JENNIFER VERONICA Room #: 516-1 [facility] IN ..#: [id number] Admission: 03/25/21 Attend Phys: Ricky Renee MD Discharge: Date of : 36 Report #: [id number] EXAMINATION AND FINDINGS: The patient is alert and cooperative with the assessment. He accurately described events surrounding his admission. There is no evidence of aphasia. His thoughts are logical and goal oriented. There is no evidence of thought disorder. He does not report auditory or visual hallucinations. His affect appeared depressed. He reports feelings of sadness and loss associated with his 's . He reports her having suffered from cancer and having a relatively stable course until a sudden deterioration. He reports his symptoms to include sleep disturbance, depression and anxiety. He does not report problems with appetite, memory or word finding. Performance on the MMSE 2 brief version was extremely low with a raw score of 11/16. He is hard of hearing which may have effected his performance. He wa 2/3 for immediate recall of 3 items after a brief time delay and distraction. Multiple repetitions were necessary for immediate registration. He was 3/5 for orientation to time and 5/[address] The patient was 1/3 for immediate recall of 3 items after a brief time delay and distraction. Performance on the MMSE 2 standard version was extremely low with a raw score 21 of 30, which is a T score of 28 and percentile rank of 1. He was 2/5 for serial sevens, 2/2 for naming, 1/1 for repetition, 3/3 for comprehension. He could read and follow a single command and write a sentence. The patient was unable to accurately draw a simple geometric design. Clock drawing was within normal limits. The patient is presenting with a depressed mood and increased anxiety. Mild to moderate deficits are suggested in cognitive functioning. Impairment is most noticeable in immediate recall, initial registration and sustained concentration. DIAGNOSTIC IMPRESSION: Mild neurocognitive disorder, unspecified, without behavior disorder. Adjustment disorder with depressed mood. RECOMMENDATIONS: The patient will likely require increased assistance in the management of medication finances and nutrition upon his return home. He is planning on driving. A followup neuropsych assessment is indicated to clarify cognitive functioning prior to taking on increased responsibility including driving. Continued speech therapy to assist with compensatory strategies. He would also benefit from an audiology evaluation. [facility] [address] [address] CONSULTATION Name: JENNIFER VERONICA Room #: 516-1 ADM IN ..#: [id number] Admission: 03/25/21 Attend Phys: Ricky Renee MD Discharge: Date of : 36 Report #: [id number] Thank you very much for allowing me to provide the consultation on this patient. <ELECTRONICALLY SIGNED> By: Farrukh Longoria, PhD 04/08/21 1657 [id number] Farrukh Longoria, PhD /nt
--- NOTE | 2021-04-08 16:57 | NUR ---
Per order Wound care was contacted regarding evaluation for stump housekeeping aide evaluation with Reba. message left to reponder
[2021-04-08 19:56] VITALS: BP 151/83
--- NOTE | 2021-04-09 01:42 | NUR ---
assumed care approx 1900 evening 04/08. pt alert and oriented x4, appropriate and cooperative. cornejo to dd with clear yellow urine to bag. pt transferring with slideboard from w/c to bed tolerating well. pt took hs meds with water, no problems. pt appears to be sleeping soundly. bed alarm on and call light in reach. will continue to monitor.
[2021-04-09 08:00] VITALS: BP 121/67
[2021-04-09 09:15] VITALS: BP 121/67
--- NOTE | 2021-04-09 11:45 | NUR ---
Cm spoke with his daughter via phone call, [facility] does not have transportation for dc tomorrow, and dc moved to 04/10. Ok for express wheel chair to transport him to [facility].
[2021-04-09] MEDS ORDERED: OXYCODONE HCL 55 MG PO (15:38)
[2021-04-09 16:30] VITALS: BP 121/67
--- NOTE | 2021-04-09 17:49 | NUR ---
PT A&OX4. EMPLOYEE HE[employer] RN NOTIFIED FOR STUMP LOG TUMBLER THIS AFTERNOON APPROX 1500. PT SHOULD DC TOMORROW TO [facility]
[2021-04-09 18:58] VITALS: BP 136/74
--- NOTE | 2021-04-10 03:15 | NUR ---
assumed care approx 1900 evening 04/09. pt alert and oriented x4, pleasant and cooperative. leg bag in place and pt transferred with slideboard to w/c and into bathroom to change to cornejo bag. pt stated he was looking forward to being discharged today. pt appears to be sleeping soundly. bed alarm on and call light in reach. will continue to monitor.
[2021-04-10 08:08] VITALS: BP 133/64
--- NOTE | 2021-04-10 08:45 | NUR ---
[facility] transport set up for [id number], # [id number]. send him in his loaner wheel chair from [employer] and the slide board as well. Dc to [facility] location today.
[2021-04-10] MEDS ORDERED: FOLIC ACID1 MG PO ×2 (09:00→14:57)
[2021-04-10] MEDS ORDERED: MAGOX 400400 MG PO (09:00)
[2021-04-10] MEDS ORDERED: CYANOCOBAL1000 MCG/1 PO (09:00)
[2021-04-10] MEDS ORDERED: VITAMIN B-1100 M2 PO ×2 (09:00→14:57)
[2021-04-10] MEDS ORDERED: TRADJENTA5 MG PO ×2 (09:00→14:57)
[2021-04-10] MEDS ORDERED: FLOMAX0.4 MG PO (09:00)
[2021-04-10] MEDS ORDERED: IRON325 PO (09:00)
--- NOTE | 2021-04-10 12:15 | NUR ---
ASSUMED PT CARE AT SHIFT CHANGE, BEDSIDE REPORT RECEIVED, ASSESSEMENT DONE CHARTED, A/O X 4, VSS, AFEBRILE, LABS REVIEWED NO NEW CONCERNS, TOOK PILLS WHOLE W/ WATER, PT REMAINED SAFE AND COMFORTABLE, BUCHANAN PATENT, I&O'S SATISFACTORY, HAD A NORMAL BM, WAS ABLE TO USE SLIDE BOARD TO WHEELCHAIR, PENIDING PLASTIC MANAGER OF STUMP LABOR RELATIONS MANAGER AND PT IS STABLE AND READY TO BE DC'D.
[2021-04-10] MEDS ORDERED: VITAMIN B-121000 MC2 SUBLING (14:56)
[2021-04-10 15:30] VITALS: BP 121/67
--- NOTE | 2021-04-10 16:38 | NUR ---
PT REMAINED COMFORTABLE, SAFE AND STABLE, NO FALL OR INJURY DURING STAY, VSS, NO CONCERNING LABS OR ELSE AT THE TIME OF DC'D; ALL BELONGINGS SENT WITH PT AND FAMILY( DAUGHTER), DC' INSTRUCTION DISCUSSED WITH PT AND DAUGHTER, WHO EXPRESSED VERBAL UNDERSTANDING OF THE PROCESS AND FOLLOW UP CARE. TRANSPORT ARRIVED AT ABOUT 1635, PT WAS TAKEN ON A WHEEL CHAIR WITH TRANPSORT AGENT AND DAUGHTER.
[2021-04-11] MEDS ORDERED: FLOMAX0.4 MG PO (09:52)
== END 2021-04-10 16:44 | DRG 92 ==
LOC: ADMC 14:20
PROVIDERS: Internal Medicine; Nurse Practitioner; Nurse Practitioner Family; ADMIT Physical Medicine & Rehabilitation; ATTEND Physical Medicine & Rehabilitation
DX: G72.81 Critical illness myopathy (principal); N17.9 Acute kidney failure, unspecified; D62 Acute posthemorrhagic anemia; R78.81 Bacteremia; M86.8X8 Other osteomyelitis, other site; E44.0 Moderate protein-calorie malnutrition; E22.2 Syndrome of inappropriate secretion of antidiuretic hormone; E83.42 Hypomagnesemia; Z20.822 Contact with and (suspected) exposure to COVID-19; E11.42 Type 2 diabetes mellitus with diabetic polyneuropathy; E11.51 Type 2 diabetes mellitus with diabetic peripheral angiopathy without gangrene; B95.62 Methicillin resistant Staphylococcus aureus infection as the cause of diseases classified elsewhere; E78.00 Pure hypercholesterolemia, unspecified; I25.10 Atherosclerotic heart disease of native coronary artery without angina pectoris; G31.84 Mild cognitive impairment of uncertain or unknown etiology; F43.21 Adjustment disorder with depressed mood; M81.0 Age-related osteoporosis without current pathological fracture; M19.90 Unspecified osteoarthritis, unspecified site; R26.9 Unspecified abnormalities of gait and mobility; M21.371 Foot drop, right foot; E11.69 Type 2 diabetes mellitus with other specified complication; E87.5 Hyperkalemia; R53.81 Other malaise; R31.0 Gross hematuria; E53.8 Deficiency of other specified B group vitamins; N40.1 Benign prostatic hyperplasia with lower urinary tract symptoms; R33.8 Other retention of urine; Z95.820 Peripheral vascular angioplasty status with implants and grafts; I25.2 Old myocardial infarction; Z95.1 Presence of aortocoronary bypass graft; Z95.5 Presence of coronary angioplasty implant and graft; Z87.891 Personal history of nicotine dependence; Z68.25 Body mass index [BMI] 25.0-25.9, adult; Z79.82 Long term (current) use of aspirin; Z79.899 Other long term (current) drug therapy
CPT/HCPCS: 10112